=== PATIENT | female | born 1965 | race Caucasian/White ===

== ENCOUNTER → 2017-01-29 | Day surgery (SDC) | payer BC ==
[~2017-01-29] MED LIST: Atropine 0.4 MG/ML SDV IV ONE; Atropine 0.4 MG/ML SDV ONE; Lactated Ringers 1,000 ML IV SCH; Meperidine PF 25 MG/ML Syringe IV ONE; Meperidine PF 25 MG/ML Syringe ONE; Meperidine PF 50 MG/ML Syringe IV ONE; Meperidine PF 50 MG/ML Syringe ONE; Midazolam 1 MG/ML 2 ML SDV IV ONE; Midazolam 1 MG/ML 2 ML SDV ONE
[2017-01-29 11:09] VITALS: BP 99/61
--- NOTE | 2017-01-29 15:27 | OR ---
DATE OF OPERATION: 01/29/2017 PREOPERATIVE DIAGNOSIS: COLON SCREENING. POSTOPERATIVE DIAGNOSIS: NORMAL COLONOSCOPY UP TO HEPATIC FLEXURE. SURGEON: Jeremy Lewis MD ANESTHESIA: IV sedation. DESCRIPTION OF PROCEDURE: After the patient was placed in left lateral position, colonoscope was introduced into anal canal from where it was maneuvered into rectum then into sigmoid colon. The patient has a very capacious colon and then it was gradually advanced through the splenic flexure. By the time I got to hepatic flexure, the patient had developed very severe bradycardia. The procedure had to be terminated. The patient was given atropine. She slowly did recover and woke up fine, but the procedure could not be continued beyond hepatic flexure. Up to hepatic flexure, I did not see any tumor mass, any polypoid lesion, any inflammatory process. Other than very mild diverticulosis, no other pathology was seen. GERARD/ERIN /[id number]
== END ==
LOC: CC.SDS 08:26
PROVIDERS: ATTEND Family Medicine
DX: Z12.11 Encounter for screening for malignant neoplasm of colon (principal); K57.30 Diverticulosis of large intestine without perforation or abscess without bleeding; R00.1 Bradycardia, unspecified; J01.90 Acute sinusitis, unspecified; N80.0 Endometriosis of uterus; G25.81 Restless legs syndrome; M54.12 Radiculopathy, cervical region; G43.709 Chronic migraine without aura, not intractable, without status migrainosus; R07.9 Chest pain, unspecified; R30.0 Dysuria; N60.19 Diffuse cystic mastopathy of unspecified breast; M79.7 Fibromyalgia; K29.70 Gastritis, unspecified, without bleeding; N95.1 Menopausal and female climacteric states; E03.9 Hypothyroidism, unspecified; R53.81 Other malaise; R53.83 Other fatigue; J31.0 Chronic rhinitis; Z79.899 Other long term (current) drug therapy; Z87.19 Personal history of other diseases of the digestive system; Z72.0 Tobacco use
CPT/HCPCS: 45378; J0461; J2175; J2250; J7120

== ENCOUNTER 2018-04-14 08:41 | Emergency (ER) | payer BC ==
[2018-04-14] MEDS: Acetaminophen/HYDROcodone 325-5 MG Tab PO ONE (08:58)
[2018-04-14] MEDS: Ondansetron 4 MG/2 ML SDV IVPUSH ONE ×2 (08:59→12:20)
[2018-04-14 09:30] LABS: CHLORIDE,CL 103 mEq/L (98-106); SODIUM,NA 135 mEq/L (136-145)
[2018-04-14] MEDS: fentaNYL 100 MCG/2 ML SDV IVPUSH ONE ×6 (09:33→13:55)
--- NOTE | 2018-04-14 10:34 | EDM.PDOC ---
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 She does report she has had chronic pelvic pain for about the past 7+ years. She reports she has dull pain on a daily basis. She reports that starting yesterday afternoon she noticed the pain was worsening. She reports that initially she was able to manage the pain with ibuprofen, but throughout the night into this morning the pain has become much more severe. She describes the pain as pressure with severe cramping. She states "it feels like someone is trying to pull my uterus out." She rates the pain a 10/10. Associated symptoms include nausea, diarrhea and chills. She denies any fever. Temperature at ED presentation is 99 deg F. She denies any chest pain, shortness of breath, dizziness, headache, vomiting, constipation, dysuria, urinary urgency or frequency, incontinence, dysparunia, vaginal discharge. She is post menopausal. Chart review indicates a pelvic US was completed December 2016 revealing a heterogeneous uterus. She did see Dr. Merida (OBGYN) who recommended hysterectomy. 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 She does plan to proceed with this when time allows, possibly this winter. Onset Date: 04/13/18 Duration: Constant, Getting Worse Location: Reports: Abdomen, Pelvis Quality: Reports: Pressure, Other (cramping) Severity: Severe Improves with: Reports: Heat Therapy, Medication Worsens with: Reports: Movement Associated Symptoms: Reports: Fever/Chills, Loss of Appetite, Nausea/Vomiting ( nausea, no vomiting). 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 Bilateral Pelvic Pain Score (Numeric/FACES): 10 - Related Data Allergies Allergy/AdvReac Type Severity Reaction Status Date / Time No Known Allergies Allergy Verified 04/14/18 08:44 Home Meds: Home Meds Ketorolac Tromethamine [IJD: Ketorolac Tromethamine] 10 mg PO Q6H PRN 01/27/17 [ History] Levothyroxine Sodium 125 mcg PO DAILY 01/27/17 [History] Omeprazole Magnesium [Prilosec Otc] 20 mg PO DAILY 01/27/17 [History] Promethazine HCl 25 mg PO Q6H PRN 01/27/17 [History] diphenhydrAMINE [Benadryl] 25 mg PO Q4H PRN 01/27/17 [History] Liothyronine Sodium 2.5 mg PO DAILY 04/14/18 [History] Past Medical History HEENT History: Reports: Impaired Vision Endocrine/Metabolic History: Reports: Hypothyroidism Social & Family History - Family History Family Medical History: Noncontributory - Tobacco Use Smoking Status *Q: Never Smoker - Caffeine Use Caffeine Use: Reports: Coffee, Tea - Alcohol Use Days Per Week of Alcohol Use: 0 - Recreational Drug Use Recreational Drug Use: No ED ROS GENERAL - Review of Systems Review Of Systems: See Below Constitutional: Reports: Chills, Fatigue, Decreased Appetite. Denies: Fever Respiratory: Reports: No Symptoms. Denies: Shortness of Breath, Wheezing, Pleuritic Chest Pain, Cough, Sputum Cardiovascular: Reports: No Symptoms. Denies: Chest Pain, Edema, Lightheadedness Endocrine: Reports: Fatigue GI/Abdominal: Reports: Abdominal Pain, Diarrhea, Decreased Appetite, Nausea. Denies: Distension, Hematochezia, Melena, Vomiting : Denies: Discharge, Dysuria, Flank Pain, Frequency, Hematuria, Irregular Menses, Urgency, Urinary Retention Musculoskeletal: Reports: No Symptoms Skin: Reports: No Symptoms Neurological: Denies: Confusion, Dizziness, Headache, Weakness Psychiatric: Reports: No Symptoms Hematologic/Lymphatic: Reports: No Symptoms Immunologic: Reports: No Symptoms ED EXAM, GI/ABD - Physical Exam Exam: See Below General Appearance: Alert, WD/WN, Moderate Distress Head: Atraumatic, Normocephalic Neck: Normal Inspection, Supple, Non-Tender, Full Range of Motion Respiratory/Chest: No Respiratory Distress, Lungs Clear, Normal Breath Sounds, No Accessory Muscle Use, Chest Non-Tender Cardiovascular: Normal Peripheral Pulses, Regular Rate, Rhythm, No Edema, No Gallop, No JVD, No Murmur, No Rub GI/Abdominal Exam: Normal Bowel Sounds, Soft, No Distention, No Abnormal Bruit, Rebound, Tender (bilateral lower quadrant/pelvis, R>L) (Female) Exam: Normal External Exam, Adnexal Tenderness (Right), Cervix Motion Tenderness, Uterine Tenderness, Vaginal Discharge Back Exam: Normal Inspection, Full Range of Motion. No: CVA Tenderness (L), CVA Tenderness (R) Extremities: Normal Inspection, Normal Range of Motion, Non-Tender, Normal Capillary Refill, No Pedal Edema Neurological: Alert, Oriented, CN II-XII Intact, Normal Cognition, Normal Gait, Normal Reflexes, No Motor/Sensory Deficits Psychiatric: Anxious Skin Exam: Warm, Dry, Intact, Normal Color, No Rash Lymphatic: No Adenopathy Course - Vital Signs Last Recorded V/S: Last Vital Signs Temp 99.3 F 04/14/18 12:22 Pulse 79 04/14/18 12:22 Resp 20 04/14/18 12:22 BP 136/84 04/14/18 12:22 Pulse Ox 97 04/14/18 12:22 - Orders/Labs/Meds Orders: Active Orders 24 hr Category Date Time Status Abdomen Pelvis w Cont [CT] Stat Exams 04/14/18 10:04 Taken CULTURE GENITAL [RM] Stat Lab 04/14/18 10:02 Received URINALYSIS W/MICROSCOPIC [UA W/MICROSCOPIC] [URIN] Stat Lab 04/14/18 09:06 Ordered Sodium Chloride 0.9% [Normal Saline] 1,000 ml Med 04/14/18 11:00 Active IV ASDIRECTED Medication Orders Sodium Chloride (Normal Saline) 1,000 mls @ 150 mls/hr IV ASDIRECTED СВЕТЛАНА Last Admin: 04/14/18 11:01 Dose: 150 mls/hr Labs: Laboratory Tests 04/14/18 04/14/18 04/14/18 Range/Units 09:06 09:07 09:07 WBC 11.4 H (5.0-10.0) 10^3/uL RBC 4.74 (4.00-5.50) 10^6/uL Hgb 13.9 (12.0-16.0) g/dL Hct 40.7 (37.0-47.0) % MCV 85.9 (82.0-94.0) fL MCH 29.3 (27.0-32.0) pg MCHC 34.2 (33.0-38.0) g/dL RDW Coeff of Payton 13.0 (11.0-15.0) % Plt Count 260 (150-400) 10^3/uL Neut % (Auto) 75.7 (35-85) % Lymph % (Auto) 16.1 (10-55) % [place] % (Auto) 7.6 (0-16) % Eos % (Auto) 0.4 (0-5) % Baso % (Auto) 0.2 (0-3) % Neut # (Auto) 8.62 H (1.80-7.00) 10^3/uL Lymph # (Auto) 1.83 (1.00-4.80) 10^3/uL [place] # (Auto) 0.86 H (0.00-0.80) 10^3/uL Eos # (Auto) 0.04 (0.00-0.45) 10^3/uL Baso # (Auto) 0.02 10^3/uL Sodium 135 L (136-145) mEq/L Potassium 3.7 (3.5-5.0) mEq/L Chloride 103 (98-106) mEq/L Carbon Dioxide 24 (21-32) mmol/L BUN 11 (7-18) mg/dL Creatinine 0.8 (0.6-1.0) mg/dL Est Cr Clr Drug Dosing 67.17 mL/min Estimated GFR (MDRD) > 60 (>=60) mL/min Glucose 109 H (75-99) mg/dL Calcium 9.1 (8.4-10.1) mg/dL Total Bilirubin 0.6 (0.0-1.0) mg/dL AST 19 (15-37) U/L ALT 23 (12-78) U/L Alkaline Phosphatase 99 (46-116) U/L C-Reactive Protein 5.9 H (0.2-0.8) mg/dL Total Protein 7.7 (6.4-8.2) g/dL Albumin 4.1 (3.4-5.0) g/dL Urine Color Yellow (YELLOW) Urine Appearance Clear (CLEAR) Urine pH 6.5 (4.5-8.0) Ur Specific [place] 1.010 (1.003-1.020) Urine Protein Negative (NEGATIVE) mg/dL Urine Glucose (UA) Negative (NEGATIVE) mg/dL Urine Ketones Negative (NEGATIVE) mg/dL Urine Occult Blood Negative (NEGATIVE) Urine Nitrite Negative (NEGATIVE) Urine Bilirubin Negative (NEGATIVE) Urine Urobilinogen 0.2 (0.2-1.0) EU/dL Ur Leukocyte Esterase Negative (NEGATIVE) Urine RBC Not seen (0-5) /HPF Urine WBC Not seen (0-5) /HPF Ur Squamous Epith Cells Occasional H (NOT SEEN) /HPF Urine Bacteria Occasional H (NOT SEEN) /HPF Meds: Medications Generic Name Dose Route Start Last Admin Trade Name Freq PRN Reason Stop Dose Admin Sodium Chloride 1,000 mls @ 150 mls/hr 04/14/18 11:00 04/14/18 11:01 Normal Saline IV 150 mls/hr ASDIRECTED СВЕТЛАНА Administration Discontinued Medications Generic Name Dose Route Start Last Admin Trade Name Freq PRN Reason Stop Dose Admin Hydrocodone Bitart/Acetaminophen 1 tab 04/14/18 08:53 04/14/18 08:58 Marina 325-5 Mg PO 04/14/18 08:54 1 tab ONETIME ONE Administration Fentanyl 50 mcg 04/14/18 09:29 04/14/18 09:33 Sublimaze IVPUSH 04/14/18 09:30 50 mcg ONETIME ONE Administration Fentanyl 50 mcg 04/14/18 09:58 04/14/18 10:03 Sublimaze IVPUSH 04/14/18 09:59 50 mcg ONETIME ONE Administration Fentanyl 100 mcg 04/14/18 10:31 04/14/18 10:35 Sublimaze IVPUSH 04/14/18 10:32 100 mcg ONETIME ONE Administration Fentanyl 100 mcg 04/14/18 12:01 04/14/18 12:09 Sublimaze IVPUSH 04/14/18 12:02 100 mcg ONETIME ONE Administration Hydromorphone HCl 1 mg 04/14/18 11:36 04/14/18 11:50 Dilaudid IVPUSH 04/14/18 11:37 1 mg ONETIME ONE Administration Ampicillin Sodium/Sulbactam 100 mls @ 200 mls/hr 04/14/18 10:54 04/14/18 11: 14 Sodium 3 gm/ Sodium Chloride IV 04/14/18 11:23 200 mls/hr ONETIME ONE Administration Ondansetron HCl 4 mg 04/14/18 08:54 04/14/18 08:59 Zofran IVPUSH 04/14/18 08:55 4 mg Q6H ONE Administration Ondansetron HCl 4 mg 04/14/18 12:15 04/14/18 12:20 Zofran IVPUSH 04/14/18 12:16 4 mg Q6H ONE Administration - Re-Assessments/Exams Free Text/Narrative Re-Assessment/Exam: 04/14/18 10:00 Discussed lab results with patient and . Discussed that given severity of pain and leuocytosis, I would like to proceed with Ct abdomen/pelvis. Patent is in agreement. 04/14/18 10:58 Call from radiologist with CT results. Patient has acute appendicitis. Discussed with patient and . Patient prefers [facility]. 04/14/18 11:[address] [facility]. Per Dr. Miguel (general surgery), recommend sending her to ED and he will see her there. Discussed risks and benefits of transfer with patient and family. Risks of transfer include worsening of condition, rupture of appendix, MVA, and enroute. Benefits of transfer include higher level of care, surgical consultation, and definitive management of acute appendicitis. Risks of nontransfer include worsening of condition, rupture of appendix, , and no surgical consultation. Benefits of nontransfer include convenience and close proximity to home. Patient and family verbalize understanding of risks and benefits and are agreeable to transfer. 04/14/18 11:05 Awaiting response from [facility] regarding ability to provide ALS transfer. At this time, they have slag expander, but do not have a bus driver/monitor. I strongly feel patient needs to go ALS given severity of pain and risk of rupture of appendix. 04/14/18 12:00 [facility] unable to provide transportation due to no bus driver/monitor availability. [facility] called. They are able to provide ALS transfer. Patient remains in significant pain. She appears very uncomfortable. Has not had relief with recently administered dilaudid. Will give another 100 fentanyl. 04/14/18 12:14 Patient reports pain has become more sharp in nature. Fentanyl administered. Patient reports relief of pain. Appears much more comfortable. Awaiting [facility] transfer crew. CT images pushed to [facility] PACS. 04/14/18 12:41 Patient's pain starting to climb again. Rates pain 8/10. Will administer another dose of fentanyl. She appears very uncomfortable. [facility] arrived and preparing for transfer. [facility] has 200 mcg stocked for transfer. We will send an additonal 200 mg fentanyl as patient has been requiring 100 mcg fentanyl ~ every 30 minutes. Will also send an additional dose of Zofran as patient is starting to get nauseated. Notified [facility] that patient is just leaving facility. Delay in care due to ALS transfer availability. Departure - Departure Time of Disposition: 13:00 Disposition: DC/Tfer to Acute Hospital 02 Condition: Fair Clinical Impression: Acute appendicitis with peritonitis - Discharge Information *PRESCRIPTION DRUG MONITORING PROGRAM REVIEWED*: Not Applicable *COPY OF PRESCRIPTION DRUG MONITORING REPORT IN PATIENT OSMIN: Not Applicable Referrals: Fabiana Mcacnn PA [Primary Care Provider] - Forms: ED Department Discharge - Problem List & Annotations (1) Acute appendicitis with localized peritonitis SNOMED Code(s): 142904558 Code(s): K35.3 - ACUTE APPENDICITIS WITH LOCALIZED PERITONITIS Status: Acute Current Visit: Yes - Problem List Review Problem List Initiated/Reviewed/Updated: Yes - My Orders Last 24 Hours: My Active Orders 04/14/18 09:06 URINALYSIS W/MICROSCOPIC [UA W/MICROSCOPIC] [URIN] Stat 04/14/18 10:02 CULTURE GENITAL [RM] Stat 04/14/18 10:04 Abdomen Pelvis w Cont [CT] Stat 04/14/18 11:00 Sodium Chloride 0.9% [Normal Saline] 1,000 ml IV ASDIRECTED - Assessment/Plan Last 24 Hours: My Active Orders 04/14/18 09:06 URINALYSIS W/MICROSCOPIC [UA W/MICROSCOPIC] [URIN] Stat 04/14/18 10:02 CULTURE GENITAL [RM] Stat 04/14/18 10:04 Abdomen Pelvis w Cont [CT] Stat 04/14/18 11:00 Sodium Chloride 0.9% [Normal Saline] 1,000 ml IV ASDIRECTED Plan: Patient's last oral intake was yesterday evening. Transfer to [facility]. Dr. Miguel (general surgery) accepting physician. NPO until evaluation by surgeon
[2018-04-14] MEDS: Sodium Chloride 0.9% 1,000 ML IV SCH (11:01)
[2018-04-14] MEDS: Ampicillin/Sulbactam Na 3 GM in Sodium Chloride 0.9% 100 ML IV ONE (11:14)
[2018-04-14] MEDS: HYDROmorphone 1 MG/ML Syringe IVPUSH ONE (11:50)
[2018-04-14 12:23] VITALS: BP 136/84
[2018-04-14] MEDS: fentaNYL 100 MCG/2 ML SDV ONE (13:54)
[2018-04-14] MEDS: Ondansetron 4 MG/2 ML SDV ONE (14:00)
== END 2018-04-14 13:00 ==
LOC: CC.ED 08:41
DX: K35.3 Acute appendicitis with localized peritonitis (principal); E03.9 Hypothyroidism, unspecified; Z79.899 Other long term (current) drug therapy
CPT/HCPCS: 36415; 74177; 80053; 81001; 85025; 86140; 87070; 87210; 96361; 96365; 96375; 96376; 99284; A9270-GY; J0295; J1170; J2405; J3010; J7030; J7050; Q9967